=== PATIENT | male | born 1945 | race Caucasian/White ===

== ENCOUNTER 2022-10-08 10:01 | Emergency (ER) | payer MEDICARE, OTHER, SELFPAY ==
--- NOTE | 2022-10-08 10:07 | ED.URI ---
HPI - URI/Sore Throat General Chief Complaint: Upper Respiratory Infection Stated Complaint: uri Time Seen by Provider: 10/08/22 10:07 Source: patient and RN notes reviewed History of Present Illness HPI Narrative: Patient is a 77-year-old male who presents to urgent care with complaints of chest congestion and cough. Patient states that his was here last week and was given antibiotic and codeine cough syrup. Patient states his symptoms started 3 days ago. Denies any fevers, shortness of breath. Patient states he has been taking his 's cough syrup been using [id number] cough medication. Patient is otherwise not treated his symptoms. Patient states he is having eye surgery next week and does not need to be coughing. Patient has not notified his primary care doctor or the eye surgeon. No other acute complaints. No acute distress noted. Patient aware of the plan of care. Some parts of this dictation were generated by voice recognition software and may contain typographical and/or grammatical inaccuracies. Related Data Home Medications Medication Instructions Recorded Confirmed amlodipine 10 mg tablet 10 mg PO DAILY 10/08/22 10/08/22 ergocalciferol (vitamin D2) 1,250 See Rx Instructions .Route .COMPLEX 10/08/22 10/08/22 mcg (50,000 unit) capsule hydroxyzine HCl 25 mg tablet 25 mg PO DAILY 10/08/22 10/08/22 insulin glargine 100 unit/mL (3 unit subcut 10/08/22 mL) subcutaneous pen (Lantus Solostar U-100 Insulin) latanoprost 0.005 % eye drops 1 drp EACH EYE HS 10/08/22 10/08/22 lisinopril 40 mg tablet 40 mg PO DAILY 10/08/22 10/08/22 Allergies Allergy/AdvReac Type Severity Reaction Status Date / Time No Known Allergies Allergy Unverified 10/08/22 10:13 Review of Systems Review of Systems: CONSTITUTIONAL: Denies fever, chills, or sweats. EYES: Denies visual changes, redness, or discharge. ENT: Denies rhinorrhea, congestion, sore throat, or otalgia. CARDIOVASCULAR: Denies chest pain, palpitations, or edema. RESPIRATORY: Reports of nonproductive cough with chest congestion, no dyspnea GASTROINTESTINAL: Denies abdominal pain, nausea, vomiting, or diarrhea. GENITOURINARY: Denies dysuria or hematuria. SKIN: Denies rash or itching. MUSCULOSKELETAL: Denies back pain, joint pain, or myalgia. NEUROLOGIC: Denies headache, numbness, or weakness. All other systems reviewed are negative, except as documented in HPI. PMFSH Comments At the time of my signature, I reviewed and agree with the nursing past medical, surgical, social, and family history. There is no relevant family history pertinent to the patient complaint. Exam Narrative: GENERAL: This is a well-nourished, well-developed patient, in no apparent distress. HEAD: normocephalic, atraumatic. EYES: PERRL. Sclera clear/white. Vision is grossly intact. EARS: External ears normal, auditory canals clear and without drainage, TMs normal without perforation. Hearing grossly intact. NOSE: External nose normal with no obvious nasal discharge, nares without redness, clears rhinorrhea. THROAT: Mucous membranes moist, posterior pharynx clear. Mild postnasal drainage NECK: Neck supple, non-tender without lymphadenopathy, masses or thyromegaly. CARDIOVASCULAR: Regular rate and rhythm RESPIRATORY: Clear to auscultation. Breath sounds equal bilaterally. No wheezes, rales, or rhonchi. SKIN: warm, intact with no suspicious lesions or rash, good texture and turgor. NEURO: awake, alert, and oriented to person, place and time. There were no obvious focal neurologic abnormalities. EXTREMITIES: No clubbing, cyanosis, or edema. Course Course Level of Care: Express Care Visit Vital Signs Vital signs: Vital Signs Temperature 97.9 F 10/08/22 10:08 Pulse Rate 67 10/08/22 10:08 Respiratory Rate 20 10/08/22 10:08 Blood Pressure 126/60 10/08/22 10:08 Pulse Oximetry 98 10/08/22 10:08 Oxygen Delivery Room Air 10/08/22 10:08 Temperature 97.9 F
[2022-10-08 10:08] VITALS: BP 126/60; PULSE 67; RESP 20; TEMP 36.6; O2SAT 98
== END 2022-10-08 10:30 | disposition home or self-care (01) ==
PROVIDERS: Emergency Provider Nurse Practitioner Family; PCP Family Medicine
DX: R05.9 Cough, unspecified (principal)
CPT/HCPCS: 99203; G0463